=== PATIENT | male | born 1970 | race Hispanic/Latino ===

== ENCOUNTER 2025-04-09 14:20 | Emergency (ER) | payer OTHER ==
[~2025-04-09] VITALS: Ht 172.7 cm; Wt 114.8 kg
[~2025-04-09 14:20] MED LIST: BUPROPION HCL100 MG PO; CITALOPRAM HBR40 MG PO; GEMTESA75 MG PO; LIPITOR40 MG PO; VITAMIN B COMP1 EAC1 PO
[2025-04-09] MEDS ORDERED: LOSARTAN-HCTZ1 EACH (14:38)
[2025-04-09] MEDS ORDERED: AMITRIPTYLINE H10 MG (14:38)
[2025-04-09] MEDS ORDERED: PROPRANOLOL HCL20 MG (14:38)
[2025-04-09] MEDS ORDERED: ACETAMINOPHEN 500 MG TAB PO ONE (14:45)
[2025-04-09] MEDS ORDERED: SODIUM CHLORIDE 0.9% 1,000 ML IV ONE (14:45)
[2025-04-09 14:57] LABS: BASOPHILS 0.3 % (0.2-1.2); EOSINOPHILS 0 % (0.8-7.0); LYMPHOCYTES 3.3 % (21.8-53.1); MCH 31.7 PG (25.7-32.2); MCHC 34.8 g/dL (32.3-36.5); MCV 91.2 fL (79.0-92.2); MONOCYTES 7.4 % (5.3-12.2); NEUTROPHILS 88.2 % (34.0-67.9); RBC 3.97 M/uL (4.63-6.08)
[2025-04-09 15:21] LABS: ALT (SGPT) 63.0 U/L (14-59); AST (SGOT) 50.0 U/L (15-37); GLOMERULAR FILTRATION RATE,EST 89.0 mL/min (>60); PROTEIN, TOTAL 7.6 g/dL (6.4-8.2); UREA NITROGEN 11.0 mg/dL (7-18)
[2025-04-09] MEDS ORDERED: AZITHROMYCIN 500 MG in DEXTROSE 5% 250 ML IV ONE (15:30)
[2025-04-09 15:33] LABS: INFLUENZA B NAA NEGATIVE (NEGATIVE); RESPIRATORY SYNCYTIAL VIR NAA NEGATIVE (NEGATIVE)
[2025-04-09 16:13] LABS: LACTIC ACID, BLOOD 1.3 mmol/L (0.4-2.0)
[2025-04-09] MEDS ORDERED: ZITHROMAX250 MG PO (16:40)
[2025-04-09] MEDS ORDERED: AMOX TR-K CLV1 EAC1 PO (16:40)
[2025-04-09 17:25] VITALS: BP 121/65
--- NOTE | 2025-04-14 18:55 | EKG ---
[facility] [address] [facility] [place] [address] Signed Normal sinus rhythm Right bundle branch block Left anterior fascicular block Bifascicular block Abnormal ECG No previous ECGs available Confirmed by Martín Giordano MD () on 04/14/2025 6:54:51 PM Electronically Signed By: MARTÍN GIORDANO MD 04/14/25 1855 PATIENT NAME: GRETCHEN ZHU Electrocardiogram DATE OF : 70 PHYSICIAN: MARTÍN GIORDANO MD REPORT #: [id number] REPORT IS CONFIDENTIAL AND NOT TO BE RELEASED WITHOUT AUTHORIZATION
== END 2025-04-09 18:12 | disposition home or self-care (01) ==
LOC: ED 14:20
PROVIDERS: Emergency Medicine
DX: J18.9 Pneumonia, unspecified organism (principal); E78.5 Hyperlipidemia, unspecified; I10 Essential (primary) hypertension; Z79.899 Other long term (current) drug therapy
CPT/HCPCS: 36415; 71045; 80053; 83605; 84484; 85025; 87502; 93005; 93010; 96365; 96367; 99285-25; A9270; J0456; J0696; J7030; J7060; U0002